=== PATIENT | female | born 1995 | race Caucasian/White ===

== ENCOUNTER 2025-02-02 20:18 | Outpatient (REF) | payer OTHER, SELFPAY ==
--- OUTSIDE RECORDS SUMMARY | 2023-01-07 06:00 | XMS_ITS | Continuity of Care Document ---
Author Organization [facility] Address [address] [place] [address] Phone Care Team Providers Care Interactive Art Director Name Role Phone Wesley PHIIman Villanueva Unavailable Unavailable Allergies, Adverse Reactions, Alerts Substance Reaction Status Criticality latex Active No Information Procedures Procedure Date Resin Composite 1s; Posterior 3 Oral Hygiene Instruction Resin Composite 2s; Posterior 3 Oral Hygiene Instruction Resin Composite 3s; Posterior 3 Resin Composite 1s; Posterior 3 Resin Composite 1s; Posterior 3 Oral Hygiene Instruction Resin Two Surfaces Anterior Bitewings Four Films Intraoral-periapical 1st Film 3 Periodic Oral Eval Estab Patient 2022 Oral Hygiene Instruction Prophylaxis Adult Covid Testing [facility] PPE Resin One Surface; Anterior Oral Hygiene Instruction Treatment Completed Periodic Oral Eval Estab Patient 2019 Bitewings Four Films Intraoral-periapical 1st Film 0 Prophylaxis Adult Oral Hygiene Instruction Resin Two Surfaces Anterior [employer] [place] Dis Oct Oral Hygiene Instruction Limited Oral Eval [employer] [place] Dis Sep Tobacco Counseling Oral Hygiene Instruction Resin Composite 2s; Posterior 9 Prophylaxis Adult [employer] [place] Dis Aug Oral Hygiene Instruction Intraoral-complete Series (bw) 18 [employer] [facility] [place] Dis Jun Tobacco Counseling Oral Hygiene Instruction Comp Oral Eval New/estab Patient 2017 Advance Directives Directive Yes / No Effective Date File Name No Information Encounters Encounter Description Practice Location Reason(s) For Visit Diagnoses Date Provider Providers Copied on Encounter [facility], [address] [place] [address], [id number], [place] tel:[phone] Dental Clinic josefina (chief complaint) Encounter for screening for dental disorders 3 Wesley YIPS Iman. . tel:[phone] 23 [facility], [address] [place] [address], [id number], [place] tel:[phone] Dental Clinic JOSEFINA (chief complaint) Encounter for screening for dental disorders Oct-- 3 Wesley DDS Iman. . tel:[phone] 23 [facility], [address] [place] [address], [id number], [place] tel:[phone] Dental Clinic josefina (chief complaint) Encounter for screening for dental disorders Oct- 3 Wesley YIPS Iman. . tel:[phone] 23 [facility], [address] [place] [address], [id number], [place] tel:[phone] Dental Clinic filling (chief complaint)f illing (chief complaint) Encounter for screening for dental disorders Oct- 3 Wesley FAIRBANKS Claude. [address] [place] [address], [id number], [place]. tel:[phone] 23 [facility], [address] [place] [address], [id number], [place] tel:[phone] Dental Clinic josefina (chief complaint) Encounter for screening for dental disorders 3 Kanleón DDS Iman. . tel:[phone] 23 [facility], [address], [place], [id number], [place] tel:[phone] Dental Clinic Encounter for screening for dental disorders 3 Kanleón DDS Iman. . tel:[phone] 23 [facility], [address], [place], [id number], [place] tel:[phone] Dental Clinic Prophy Adult (chief complaint) Encounter for screening for dental disorders 1 Demetri Barrett. [address], [place], [id number], [place]. tel:[phone] 23 [facility], [address], [place], [id number], [place] tel:[phone] COVID [facility] Encounter for screening for other viral diseases 1 Chantelle Lara. [address], [place], [id number], [place]. tel:[phone] 23 [facility], [address], [place], [id number], [place] tel:[phone] Dental Clinic fiLLING (chief complaint) Encounter for screening for dental disorders 0 Ernie DDS Mario. [address], [place], [id number], [place]. tel:[phone] 23 [facility], [address], [place], [id number], [place] tel:[phone] Dental Clinic Encounter for screening for dental disorders 0- 0 Dobbala DDS Kartheek. [address], [place], [id number], [place]. tel:[phone] 23 [facility], [address], [place], [id number], [place] tel:[phone] Dental Clinic filling (chief complaint) Encounter for screening for dental disorders 0-201 9 Dobbala DDS Kartheek. [address], [place], [id number], [place]. tel:[phone] 23 [facility], [address] [place] [address], [id number], [place] tel:[phone] Dental Clinic Encounter for screening for dental disorders 9 [facility]. [address], [place], [id number], [place]. tel:[phone] 23 [facility], [address] [place] [address], [id number], [place] tel:[phone] Dental Clinic filling (chief complaint) Encounter for screening for dental disorders 9 [facility]. [address], [place], [id number], [place]. tel:[phone] 23 [facility], [address] [place] [address], [id number], tel:[phone] Dental Clinic prophy (chief complaint) Encounter for screening for dental disorders 8 [facility] [address], [place], [id number], [place]. tel:[phone] 23 [facility], [address] [place] [address], [id number], [place] tel:[phone] Dental Clinic dental new (chief complaint) Encounter for screening for dental disorders 8 Homero Hewitt. [address] [place], [address], [place]. tel:[phone] Family History Family Member Type Diagnosis Age At Onset Mother Problem (finding) asthma Father Problem (finding) Alive and well Mother Problem (finding) Alive and well Payers Payer name Insurance type Covered republican ID Benjy stinson(ashwini) Kindra Foley [facility] [employer] [id number] [facility] [id number] Social History Type Description Quantity Date Captured Comments Alcohol Use Details Unknown Caffeine Use Details Unknown Tobacco Use Status Light cigarette smok er (1-9 cigs/day) Smoking Status Light tobacco smoker Sex Female Sexual Orientation Straight or heterosexual Jun Gender Identity Female Vital Signs Date / Time: Height Weight BMI Pulse Rate Blood Pressure Temperature Respiratory Rate Body Surface Area Head Circumference Head Circ. Percentile Wt./Kenan. Percentile BMI percentile Pulse Ox Inhaled Ox 10:15 AM 76 /min 107/73 mm[Hg] 96.80 F Chief Complaint And Reason For Visit From encounter dated '01/07/2023 10:00'. josefina (chief complaint). Description: josefina Reason For Referral Reason For Referral No Information Plan Of Treatment Date Type Action Status Goal Hep A. Due on du e Goal Depression screening. Due on due Goal PRAPARE ASSESSMENT. Due on due Goal Influenza vaccine. Due on due Goal PAP. Due on due Goal RLP. Due on due Goal Tdap Vaccine. Due on 2022 due Goal Tdap. Due on due Goal Depression screening. Due on due Goal PRAPARE ASSESSMENT. Due on due Goal Tdap. Due on due Goal RLP. Due on due Goal Influenza vaccine. Due on due Goal PAP. Due on due Goal Tdap Vaccine. Due on 2022 due Goal PAP. Due on due Goal PRAPARE ASSESSMENT. Due on due Goal Depression screening. Due on due Goal Tdap Vaccine. Due on 2022 due Goal Tdap. Due on due Goal Influenza vaccine. Due on Nc due Goal RLP. Due on due Goal Depression screening. Due on due Goal Tdap Vaccine. Due on 2022 due Goal Influenza vaccine. Due on due Goal Tdap. Due on due Goal RLP. Due on due Goal PAP. Due on due Goal PRAPARE ASSESSMENT. Due on due Goal PAP. Due on due Goal PRAPARE ASSESSMENT. Due on due Goal RLP. Due on due Goal Tdap Vaccine. Due on 2022 due Goal Influenza vaccine. Due on due Goal Depression screening. Due on due Goal Tdap. Due on due Goal PAP. Due on due Goal Tdap Vaccine. Due on 2022 due Goal Influenza vaccine. Due on due Goal Depression screening. Due on due Goal Tdap. Due on due Goal PRAPARE ASSESSMENT. Due on due Goal RLP. Due on due Appointment Surekha Ku BOOKED History Of Present Illness Encounter Date Complaint History Of Prese nt Illness josefina josefina JOSEFINA JOSEFINA josefina josefina filling filling filling josefina josefina Prophy Adult fiLLING filling filling filling filling continue with treatment prophy prophy dental [facility] dental [facility] Functional Status Date Functional Assessmen t No Information Instructions Date Instruction Additional Infor mation No Information Assessments Type Assessment Date No Information Patient Care Teams Name Effective Dates (start - stop) Status Members No Information
--- OUTSIDE RECORDS SUMMARY | 2025-02-02 14:00 | XMS_ITS | Encounter Summary ---
Author Organization [facility] Address [address] [facility] [place] [address] Care Team Providers Care Tinter Photograph Name Role Phone Stefano Condon MD Primary Care Provider [phone] Reason for Visit * Reason Comments Gynecologic Exam Encounter Details Date Type Department Care Team (Late st Contact Info) Description 02/02/2025 2:00 PM EDT Office Visit [facility] [address] [place] [address] Marie Marquez PA [address] [facility] [place] [address] Well woman exam with routine gynecological exam Social History Tobacco Use Types Packs/Day Years Used Date Smoking Tobacco: Former Cigarettes Smokeless Tobacco: Never Comments Unknown Sex and Gender Information Value Date Recorded Sex Assigned at Not on file Legal Sex Female 6:46 PM EDT Gender Identity Not on file Sexual Orientation Not on file documented as of this encounter Last Filed Vital Signs Vital Sign Reading Time Taken Comments Blood Pressure 126/64 02/02/2025 2:55 PM EDT Pulse - - Temperature - - Respiratory Rate - - Oxygen Saturation - - Inhaled Oxygen Concentration - - Weight 58.7 kg (129 lb 6.4 oz) 02/02/2025 2:55 P M EDT Height - - Body Mass Index 22.92 09/02/2024 5:34 PM EST documented in this encounter Progress Notes * GILES Reyes - 02/02/2025 2:00 PM EDT Reason for Appointment: Patient ID: Surekha Ku is a 29 y.o. female who presents for Gynecologic Exam Patient presents today for Annual Exam. MEDICATIONS Current Outpatient Medications Medication Instructions amphetamine-dextroamphetamine (Adderall) 10 MG tablet 10 mg, Daily clindamycin (Cleocin T) 1 % lotion Apply thin layer to legs BID until clear then PRN for flares. spironolactone (Aldactone) 50 MG tablet Take 1 tablet, by mouth, once daily, 30 days tretinoin (Retin-A) 0.025 % cream Apply to face, once daily at evening/night time, 30 day supply Vyvanse 40 MG capsule Every 24 hours ALLERGIES Allergies Allergen Reactions Latex Hives Other Reaction(s): lesions, hives, Unknown Other Reaction(s): Hives PROBLEMS Active Ambulatory Problems Diagnosis Date Noted No Active Ambulatory Problems Resolved Ambulatory Problems Diagnosis Date Noted No Resolved Ambulatory Problems Past Medical History: Diagnosis Date Abnormal results of other endocrine function studies Hirsutism Polycystic ovarian syndrome HISTORY PAST MEDICAL HISTORY SOCIAL HISTORY Past Medical History: Diagnosis Date Abnormal results of other endocrine function studies Hirsutism Polycystic ovarian syndrome Social History Tobacco Use Smoking status: Former Types: Cigarettes Smokeless tobacco: Never Substance Use Topics Alcohol use: Not on file Drug use: Not on file FAMILY HISTORY Family History Problem Relation Name Age of Onset Asthma Mother Hypertension Father Gout Father Deafness Brother SURGICAL HISTORY Past Surgical History: Procedure Laterality Date SECTION, LOW TRANSVERSE HIP SURGERY Bilateral TUBAL LIGATION REVIEW OF SYSTEMS Review of Systems: Review of Systems Constitutional: Negative. HENT: Negative. Eyes: Negative. Respiratory: Negative. Cardiovascular: Negative. Gastrointestinal: Negative. Genitourinary: Negative. Musculoskeletal: Negative. Skin: Negative. Neurological: Negative. All other systems reviewed and are negative. Hematological: Negative. Endocrine: Negative. Allergic/Immunologic: Negative. OBJECTIVE Objective: Physical Exam Constitutional: Appearance: Normal appearance. Genitourinary: Right Adnexa: not tender and no mass present. Left Adnexa: not tender and no mass present. No cervical discharge. Breasts: Breasts are soft. Right: Normal. Left: Normal. HENT: Head: Normocephalic. Nose: Nose normal. Mouth/Throat: Mouth: Mucous membranes are moist. Cardiovascular: Rate and Rhythm: Normal rate. Pulmonary: Effort: Pulmonary effort is normal. Abdominal: General: Bowel sounds are normal. Palpations: Abdomen is soft. Musculoskeletal: General: Normal range of motion. Cervical back: Normal range of motion. Neurological: General: No focal deficit present. Mental Status: She is alert. Skin: General: Skin is warm and dry. Psychiatric: Mood and Affect: Mood normal. Vitals and nursing note reviewed. Exam conducted with a lance crewmember/mlrs sergeant present. Vitals: Estimated body mass index is 22.92 kg/m?? as calculated from the following: Height as of 09/02/24: 5' 3 . Weight as of this encounter: 129 lb 6.4 oz. BP: 126/64 Patient's last menstrual period was 01/06/2025 (exact date). ASSESSMENT & PLAN ICD-10-CM 1. Well woman exam with routine gynecological exam Z01.419 Pap Smear Annual Exam: Patient presents today for an annual exam. Patient states she is doing well and has no complaints. Pap was obtained without difficulty. No orders of the defined types were placed in this encounter. Follow Up: Patient is to return in one year for annual unless needed otherwise. Documented by GILES Reyes on behalf of: GILES Reyes documented in this encounter Plan of Treatment Upcoming Encounters Date Type Department Care Team (Late st Contact Info) Description 02/08/2025 10:00 AM EDT Office Visit [facility] [address] [place] [address] Alivia Kim PA [address] [place] [address] 02/21/2025 9:30 AM EDT Procedure Visit [facility] OB [address] [facility] [facility] [place] [address] Kingston Damian DO [address] [place], [place] [id number] 02/07/2026 10:00 AM EDT Office Visit [facility] [address] [facility] [address] Kingston Damian, DO [address] [place] [address] [place] [address] Scheduled Orders Name Type Priority Associated Diagnoses Orde r Schedule Pap Smear Pathology and Cytology Routine Well woman exam with routine gynecological exam Ordered: 02/02/2025 documented as of this encounter Visit Diagnoses Diagnosis Well woman exam with routine gynecological exam Routine gynecological examination documented in this encounter Care Teams Tinter Photograph Relationship Specialty Start Date End Date Stefano Condon MD PCP - General Family Medicine 06/03/24 documented as of this encounter
--- OUTSIDE RECORDS SUMMARY | 2025-02-02 20:23 | XMS_ITS | Encounter Summary ---
Author Organization [facility] Address [address] [place] [address] Care Team Providers Care Licensed Marriage And Family Therapist Name Role Phone Stefano Condon MD Primary Care Provider [phone] Encounter Details Date Type Department Care Team (Late st Contact Info) Description 06/24/2024 Abstract [facility] POD [address] [place] [id number] Syed Lee, DPM FACFAS [address] [facility] [place] [address] Social History Tobacco Use Types Packs/Day Years Used Date Smoking Tobacco: Former Cigarettes Smokeless Tobacco: Never Comments Unknown Sex and Gender Information Value Date Recorded Sex Assigned at Not on file Legal Sex Female 6:46 PM EDT Gender Identity Not on file Sexual Orientation Not on file documented as of this encounter Plan of Treatment Upcoming Encounters Date Type Department Care Team (Late st Contact Info) Description 02/08/2025 10:00 AM EDT Office Visit [facility] [address] [facility] [address] [place] [address] Alivia Kim PA [address] [place] [address] 02/21/2025 9:30 AM EDT Procedure Visit [facility] OB [address] [place] [address] Kingston Damian DO [address] [facility] [place] [address] 02/07/2026 10:00 AM EDT Office Visit [facility] OB [address] [facility] [place] [address] Kingston Damian, DO [address] [facility] [address] [place], [place] [id number] documented as of this encounter Visit Diagnoses Not on filedocumented in this encounter Care Teams Licensed Marriage And Family Therapist Relationship Specialty Start Date End Date Stefano Condon MD PCP - General Family Medicine 06/03/24 documented as of this encounter
--- OUTSIDE RECORDS SUMMARY | 2025-02-02 20:23 | XMS_ITS | Clinical Summary ---
Author Organization [facility] Address [address] [facility] [place] [address] Care Team Providers Care Special Education Instructor Name Role Phone Stefano Condon MD Primary Care Provider [phone] Allergies Active Allergy Reactions Criticality Noted Date Comments Latex Hives 05/18/2024 Other Reaction(s): lesions, hives, Unknown Other Reaction(s): Hives Medications tretinoin (Retin-A) 0.025 % creamIndications :Acne vulgaris Apply to face, once daily at evening/nig ht time, 30 day supply 45 g 11 07/01/20 24 Active Vyvanse 40 MG capsule 1 (one) time each day at the same time 11/09/19 25 Active spironolactone (Aldactone) 50 MG tabletIndication s:Acne vulgaris Take 1 tablet, by mouth, once daily, 30 days 30 tablet 3 12/10/19 25 Active clindamycin (Cleocin T) 1 % lotionIndication s:Bacterial folliculitis Apply thin layer to legs BID until clear then PRN for flares. 60 mL 11 12/10/19 25 Active amphetamine-dext roamphetamine (Adderall) 10 MG tablet Take 10 mg by mouth Daily Active medroxyPROGESTER one (Provera) 10 MG tabletIndication s: control counseling,Acne, unspecified acne type,Mood swings,Irregular bleeding Take 1 tablet (10 mg) by mouth Daily for 10 days 10 tablet 05/24/20 24 025 Discontinued norgestimate-eth inyl estradiol (Ortho Tri-Cyclen,Renetta ssa) 0.18/0.215/0.25 MG-35 MCG tabletIndication s: control counseling,Acne, unspecified acne type,Mood swings,Irregular bleeding Take 1 tablet by mouth Daily for 28 days 28 tablet 12 05/24/20 24 025 Discontinued traMADol (Ultram) 50 MG tablet take 1 tablet by mouth every 8 hours if needed for severe pain 12/10/19 24 025 Discontinued 28-0.8 MG tablet 1 (one) time each day at the same time 025 Discontinued levothyroxine (Synthroid, Levoxyl) 25 MCG tablet 1 (one) time each day at the same time 025 Discontinued desogestrel-ethi nyl estradiol (Apri) 0.15-30 MG-MCG tabletIndication s: control counseling,Irreg ular bleeding,Acne, unspecified acne type,Mood swings Take 1 tablet by mouth Daily 28 tablet 12 08/16/20 025 Discontinued minocycline 50 MG capsuleIndicatio ns: control counseling,Irreg ular bleeding,Acne, unspecified acne type,Mood swings TAKE 1 CAPSULE BY MOUTH IN THE MORNING AND BEFORE BEDTIME 60 capsule 12/09/19 25 025 Discontinued ARIPiprazole (Abilify) 5 MG tablet 09/09/19 025 Discontinued( erapy completed) minocycline 50 MG capsuleIndicatio ns: control counseling,Irreg ular bleeding,Acne, unspecified acne type,Mood swings TAKE 1 CAPSULE BY MOUTH IN THE MORNING AND AT BEDTIME 60 capsule 3 01/15/20 25 025 Discontinued Active Problems No known active problems Encounters Date Type Department Care Team Description 02/02/2025 2:00 PM EDT Office Visit [facility] [place] [address] [place] [phone] Marie Marquez PA Well woman exam with routine gynecological exam 02/02/2025 Bamboo flowsheet [facility] [place] [address] [place] [address] Marie Marquez PA 01/09/2025 Refill [facility] [place] [address] [place] [address] Kingston Damian DO control counseling; Irregular bleeding; Acne, unspecified acne type; Mood swings 12/09/2024 10:20 AM EDT Office Visit [facility] [address] [place] [address] Alivia Kim PA Keratosis pilaris (Primary Dx); Acne vulgaris; Bacterial folliculitis 12/09/2024 Bamboo flowsheet [facility] [address] [place] [address] Alivia Kim PA 12/09/2024 Travel 12/08/2024 [facility]ill [facility] [address] [facility] [place] [address] Kingston Damian DO control counseling; Irregular bleeding; Acne, unspecified acne type; Mood swings from Last 3 Months Family History Medical History Relation Name Comments Deafness Brother Gout Father Hypertension Father Asthma Mother Relation Name Status Comments Brother Alive Daughter Alive Father Alive Mother Alive Social History Tobacco Use Types Packs/Day Years Used Date Smoking Tobacco: Former Cigarettes Smokeless Tobacco: Never Tobacco Cessation:Counseling Given: Yes Comments Unknown Sex and Gender Information Value Date Recorded Sex Assigned at Not on file Legal Sex Female 6:46 PM EDT Gender Identity Not on file Sexual Orientation Not on file Last Filed Vital Signs Vital Sign Reading Time Taken Comments Blood Pressure 126/64 02/02/2025 2:55 PM EDT Pulse 74 09/02/2024 5:34 PM EST Temperature - - Respiratory Rate 16 02/17/2019 8:46 AM EDT Oxygen Saturation 99% 02/17/2019 8:46 AM EDT Inhaled Oxygen Concentration - - Weight 58.7 kg (129 lb 6.4 oz) 02/02/2025 2:55 P M EDT Height 160 cm (5' 3 ) 09/02/2024 5:34 PM EST Body Mass Index 22.92 09/02/2024 5:34 PM EST Plan of Treatment Upcoming Encounters Date Type Department Care Team (Late st Contact Info) Description 02/08/2025 10:00 AM EDT Office Visit [facility] [address] [place] [address] Alivia Kim PA [address] [place] [address] 02/21/2025 9:30 AM EDT Procedure Visit [facility] OB [address] [place] [address] Kingston Damian, DO [address] [place], [place] [id number] 02/07/2026 10:00 AM EDT Office Visit [facility] [address] [facility] [place] [place] [address] Kingston Damian, DO [address] [place] [address] Insurance [employer] Care Teams Special Education Instructor Relationship Specialty Start Date End Date Stefano Condon MD PCP - General Family Medicine 06/03/24
--- OUTSIDE RECORDS SUMMARY | 2025-02-02 20:23 | XMS_ITS | Encounter Summary ---
Author Organization [facility] Address [address] [place] [address] Care Team Providers Care Real Estate Developer Name Role Phone Stefano Condon MD Primary Care Provider [phone] Encounter Details Date Type Department Care Team (Late st Contact Info) Description 02/02/2025 Bamboo flowsheet [facility] [address] [facility] [place] [address] Marie Marquez PA [address] [place] [address] [address] [place], [place] [address] Social History Tobacco Use Types Packs/Day Years [...] [address] [place] [address] Alivia Kim PA [address] [place] [address] 02/21/2025 9:30 AM EDT Procedure Visit [facility] OB [address] [facility] [place] [address] Kingston Damian DO [address] [facility] [place] [address] 02/07/2026 10:00 AM EDT Office Visit [facility] OB [address] [facility] [place] [address] Kingston Damian, [address] [facility] [place] [address] documented as of this encounter Visit Diagnoses Not on filedocumented in this encounter Care Teams Real Estate Developer Relationship Specialty Start Date End Date Stefano Condon MD PCP - General Family Medicine 06/03/24 documented as of this encounter
--- OUTSIDE RECORDS SUMMARY | 2025-02-02 20:23 | XMS_ITS | Patient Health Record ---
Author Organization [facility] Servic es Address [address] [place] [address] Care Team Providers Care Nonprofit Manager Name Role Phone Phillip Carole Primary Care Provider Dr. Macho Dowling Unavailable [phone] Shelia Aguirre Unavailable [phone] Hallie López Unavailable [phone] Lea Payan Unavailable [phone] Sonali Valdivia Unavailable [phone] Katiuska Beltran Unavailable [phone] Allergies Allergen (clinical drug ingredient) Drug/Non Drug Allergy documented on EMR Reaction Allergy Type Onset Date Status Latex Latex hives Allergy Active Reason For Referral No Information Medications Medication SIG (Take, Route, Frequency, Duration) Notes Start Date End Date Status Amphetamine-Dextroamphet amine 5 MG 1 tablet Orally every afternoon for 30 days 01/06/2025 Active Vyvanse 40 MG 1 capsule in the mor ham[place] Orally Once a day for 30 days 01/06/2025 Active Ferrous Sulfate 325 (65 Fe) MG 1 tablet Orally twice a day (bid) Not-Taking Social History Tobacco Use: Social History Observation Description Date Details (start date - stop date) Former Smoker NA - NA Tobacco Screen: Question Answer Notes Are you a: former smoker How long has it been since you last smoked? 1-5 years Alcohol Screening: Question Answer Notes Did you have a drink containing alcohol in the p ast year? No Points 0 Interpretation Negative Depression Screening (PHQ-9): Question Answer Notes Little interest or pleasure in doing things Not at all Feeling down, depressed, or hopeless Not at all Trouble falling or staying asleep, or sleeping t oo much Not at all Feeling tired or having little energy Not at all Poor appetite or overeating Not at all Feeling bad about yourself-o r that you are a failure or have let yourself or your family down Not at all Trouble concentrating on thi ngs, such as reading the newspaper or watching television Not at all Moving or speaking so slowly that other people could have noticed. Or the opposite being so fidgety or restless that you have been moving around a lot more than usual Several days Thoughts that you would be b daisy off , or of hurting yourself in some way Not at all Total Score 1 Intepretation Minimal Depression Problems Problem Type SNOMED Code ICD Code Onset Dates Problem Status W/U Status Risk Notes Problem Attention deficit hyperactivity disorder (390014499) ADHD (attention deficit hyperactivity disorder) (F90.9) Active confirmed Problem Bipolar mixed affective disorder, moderate (F31.62) Active confirmed Vital Signs Heart Rate 106 /min 01/06/2025 Oximetry 99 % 01/06/2025 Blood pressure diastolic 81 mm Hg 01/06/2025 Height 64 in 01/06/2025 Blood pressure systolic 128 mm Hg 01/06/2025 Weight 118.0 lbs 01/06/2025 BMI 20.25 kg/m2 01/06/2025 Encounters Encounter Location Date Provider Diagnosis [facility] [address] [place] [address] 02/20/2024 Macho Dowling [facility] [address] [place] [address] 07/23/2024 Carole Fisher Bipolar mixed affective disorder, moderate F31.62 [facility] [address] [place] [address] 10/28/2024 Carole Fisher Bipolar mixed affective disorder, moderate F31.62 [facility] [address] [place] [address] 10/13/2024 Shelia Aguirre Acute gingivitis, plaque induced K05.00 ; Other dental procedure status Z98.818 ; Encounter for dental examination and cleaning with abnormal findings Z01.21 and Dental caries on pit and fissure surface penetrating into dentin K02.52 [facility] [address] [place] [address] 03/11/2024 Sonali Valdivia Acute gingivitis, plaque induced K05.00 [facility] [address] [place] [address] 03/25/2024 Katiuska Ruby Dental caries on pit and fissure surface penetrating into dentin K02.52 ; Arrested dental caries K02.3 and Encounter for dental examination and cleaning with abnormal findings Z01.21 [facility] [address] [place] [place] [address] 09/09/2024 Carole Fisher Bipolar mixed affective disorder, moderate F31.62 [facility] [address] [place] [address] 11/08/2024 Carole Fisher ADHD (attention deficit hyperactivity disorder) F90.9 [facility] [address] [place] [address] 12/09/2024 Carole Fisher ADHD (attention deficit hyperactivity disorder) F90.9 [facility] [address] [place] [address] 01/06/2025 Carole Fisher ADHD (attention deficit hyperactivity disorder) F90.9 [facility] [address] [place] [address] 10/11/2024 Katiuska Beltran Encounter for dental examination and cleaning with abnormal findings Z01.21 Assessments Encounter Date Diagnosis (ICD Code) Assessment Notes Treatment Notes Treatment Clinical Notes Section Notes 09/09/2024 Bipolar mixed affective disorder, moderate (ICD-10 - F31.62) Recommended treatment for Bipolar disorder includes FDA approved and OFF label medications: second generation antipsychotics and mood stabilizers. Discussed life threatening side effect of Lamotrigine. Pt is to monitor for new skin rashes or sensation of a sunburn or itchiness or redness, mouth sores or sores in mucus membranes, and call provider immediately and or go to ER, and stop the medication. Second generation antipsychotic medications can cause headache, drowsiness, agitation, dizziness, nausea, or extrapyramidal symptoms such as tremors, muscle spasms, slowness of movement or jerking of muscles. The patient verbalizes understanding with all questions answered thoroughly and is in agreement with treatment plan. Continue current treatment. . Call for problems . GOALS: . Maintain medication regimen _Improve mood stability _Improve anxiety control _Improve social and interpersonal functioning Patient/Guardian will call sooner if symptoms worsen. Patient understands to go to ER if needed if symptoms become severe. Crisis Intervention plan was discussed and agreed upon. Patient/Guardian will call 911 in case of emergency. Emergency contact information was provided to the patient/guardian. follow up 3 months Pharmacological management: . Alternative medication plans were discussed with the patient/guardian. All relevant side effects and potential adverse effects were discussed with the patient/guardian. Standard cautions and potential benefits were discussed. Patient/Guardian consented to the start/continuation of the treatment. 11/08/2024 ADHD (attention deficit hyperactivity disorder) (ICD-10 - F90.9) . FDA approved stimulant medication for this age group. Discussed/Denies adverse effects from medication including HTN, tachycardia, insomnia, irritability, headache, or decreased appetite. . All relevant and serious adverse effects were discussed. Standard precautions and potential benefits were discussed. Patient/Guardian consented to begin medication/ continue treatment plan . Patient continues to meet criteria for attention deficit hyperactivity disorder. Pt does not meet criteria for bipolar disorder, major depressive disorder, or other persistent mood disorders. Will continue to monitor the patient for presentation of new symptoms or behaviors. . Begin current treatment with vyvanse 40mg. call for problems; questions answered satisfactorily, agreeable to treatment plan . GOALS: . Maintain medication regimen _Improve social and interpersonal functioning _Improve attention and or hyperactivity . follow up 1 month in office. . Crisis Intervention plan was discussed and agreed upon. Patient/Guardian will call 911 in case of emergency. Emergency contact information was provided to the patient/guardian. . [place]AR[place] reviewed . 12/09/2024 ADHD (attention deficit hyperactivity disorder) (ICD-10 - F90.9) . FDA approved stimulant medication for this age group. Discussed/Denies adverse effects from medication including HTN, tachycardia, insomnia, irritability, headache, or decreased appetite. . All relevant and serious adverse effects were discussed. Standard precautions and potential benefits were discussed. Patient/Guardian consented to begin medication/ continue treatment plan . Patient continues to meet criteria for attention deficit hyperactivity disorder. Pt does not meet criteria for bipolar disorder, major depressive disorder, or other persistent mood disorders. Will continue to monitor the patient for presentation of new symptoms or behaviors. . Continue current treatment; tolerating meds well, compliant; call for problems; questions answered satisfactorily, agreeable to treatment plan . GOALS: . Maintain medication regimen _Improve social and interpersonal functioning _Improve attention and or hyperactivity . follow up 1 month. . Crisis Intervention plan was discussed and agreed upon. Patient/Guardian will call 911 in case of emergency. Emergency contact information was provided to the patient/guardian. . [place]AR[place] reviewed . 01/06/2025 ADHD (attention deficit hyperactivity disorder) (ICD-10 - F90.9) . FDA approved stimulant medication for this age group. Discussed/Denies adverse effects from medication including HTN, tachycardia, insomnia, irritability, headache, or decreased appetite. . All relevant and serious adverse effects were discussed. Standard precautions and potential benefits were discussed. Patient/Guardian consented to begin medication/ continue treatment plan . Patient continues to meet criteria for attention deficit hyperactivity disorder. Pt does not meet criteria for bipolar disorder, major depressive disorder, or other persistent mood disorders. Will continue to monitor the patient for presentation of new symptoms or behaviors. . Continue current treatment; tolerating meds well, compliant; call for problems; questions answered satisfactorily, agreeable to treatment plan . GOALS: . Maintain medication regimen _Improve social and interpersonal functioning _Improve attention and or hyperactivity . follow up 3 months . Crisis Intervention plan was discussed and agreed upon. Patient/Guardian will call 911 in case of emergency. Emergency contact information was provided to the patient/guardian. . [place]AR[place] reviewed . 10/28/2024 Bipolar mixed affective disorder, moderate (ICD-10 - F31.62) 10/11/2024 Encounter for dental examination and cleaning with abnormal findings (ICD-10 - Z01.21) 03/25/2024 Dental caries on pit and fissure surface penetrating into dentin (ICD-10 - K02.52) 10/13/2024 Acute gingivitis, plaque induced (ICD-10 - K05.00) 07/23/2024 Bipolar mixed affective disorder, moderate (ICD-10 - F31.62) 03/11/2024 Acute gingivitis, plaque induced (ICD-10 - K05.00) 03/25/2024 Arrested dental caries (ICD-10 - K02.3) 10/13/2024 Other dental procedure status (ICD-10 - Z98.818) 10/13/2024 Encounter for dental examination and cleaning with abnormal findings (ICD-10 - Z01.21) 03/25/2024 Encounter for dental examination and cleaning with abnormal findings (ICD-10 - Z01.21) 10/13/2024 Dental caries on pit and fissure surface penetrating into dentin (ICD-10 - K02.52) Plan Of Treatment Next Appt Details Provider Name:Carole Fisher, 0 04/05/2025 09:00:00 AM, [address], [place], [address], Provider Name:Shelia Aguirre , 04/13/2025 10:00:00 AM, [address], [place], [address], Insurance Providers Payer Name Payer Address Payer Phone Subscriber Number Group Number Insured Name Patient Relationship to Insured Coverage Start Date Coverage End Date [employer] [place] [employer] [address] CLAIMS [place] [address] [id number] MAGDIEL ARMANDO DASHAWN Self - patient is the insured 3 [employer] [facility] [address] [place] [address] [phone] [id number] MAGDIEL ARMANDO DASHAWN Self - patient is the insured 3 [employer] [address] [address] [place] [address] [id number] MAGDIEL ARMANDO DASHAWN Self - patient is the insured 3 [employer] [facility] [address] [place] [address] [id number] MAGDIEL ARMANDO DASHAWN Self - patient is the insured 3 Medical (General) History Medical History History ICD Code Snapping hip syndrome Precocious puberty hx of ovarian cysts irregular menses ADD, anxiety GERD Surgical History Surgery Date(Month/Year) cut tibial bands bernadette 02/21/2010 scope 10/2007 Hospitalization History Reason Date(Month/Year) childbirth 11/13/2016
--- OUTSIDE RECORDS SUMMARY | 2025-02-02 20:23 | XMS_ITS | Clinical Summary ---
Author Organization [facility] Address [address] [place] [address] Phone Care Team Providers Care Lumber Salvager Name Role Phone Crystal Goodman MD Primary Care Provider [phone] Encounters Date Type Department Care Team Description 11/24/2024 Scanned Document [facility] [address] [place] [id number] Scanning, Generic Provider from Last 3 Months Social History Tobacco Use Types Packs/Day Years Used Date Smoking Tobacco: Never Assessed Comments Unknown Sex and Gender Information Value Date Recorded Sex Assigned at Not on file Legal Sex Female 10:17 PM EST Gender Identity Not on file Sexual Orientation Not on file Plan of Treatment Health Maintenance Due Date Last Done Comments HIV Screening 1995 Lipid Panel 1995 Yearly Adult Physical 1995 MMR Vaccines (1 of 1 - Stand josh series) 1996 Varicella Vaccines (1 of 2 - 13+ 2-dose series) 2008 Hepatitis C Screening 2013 Hepatitis B Vaccines (1 of 3 - 19+ 3-dose series) 2014 Cervical Cancer Screening 2016 HPV/Cotest 2016 Pap Smear 2016 DTaP/Tdap/Td Vaccines (1 - Tdap) 2017 COVID-19 Vaccine ( - 2023-2 5 season) 2024 Influenza Vaccine (Season Ended) 2025 Zoster Vaccines (1 of 2) 2045 HIB Vaccines Aged Out No longer eligi ble based on patient's age to complete this topic HPV Vaccines Aged Out No longer eligi ble based on patient's age to complete this topic Hepatitis A Vaccines Aged Out No long er eligible based on patient's age to complete this topic IPV Vaccines Aged Out No longer eligi ble based on patient's age to complete this topic Meningococcal Vaccine Aged Out No casi conchis eligible based on patient's age to complete this topic Pneumococcal Vaccine: Pediat rics and At-Risk Adult Patients Aged Out No longer aminta gible based on patient's age to complete this topic Rotavirus Vaccines Aged Out No longer eligible based on patient's age to complete this topic Procedures Procedure Name Priority Date/Time Associated Diagnosis Comments ECHOCARDIOGRAM 11/24/2024 from Last 3 Months Results * Echocardiogram (11/24/2024) Narrative 11/24/2024 Ordered by an unspecified provider. us Generic Provider Scanning CV ECHO PROCEDURES Fin al Result from Last 3 Months Insurance [facility] Care Teams Lumber Salvager Relationship Specialty Start Date End Date Crystal Goodman MD [address] [facility] [place] [address] PCP - General 02/20/10
[2025-02-07 09:08] LABS: Age Gdln ACOG Testing Note (.); IGP, rfx Aptima HPV ASCU Note (.)
== END 2025-02-02 20:19 | disposition home or self-care (01) ==
LOC: LAB 20:18
PROVIDERS: Visit Provider Physician Assistant
DX: Z01.419 Encounter for gynecological examination (general) (routine) without abnormal findings (principal)
CPT/HCPCS: 88175